=== PATIENT | female | born 1935 | race Caucasian/White ===

== ENCOUNTER 2018-12-04 10:25 | Inpatient (IN) | payer MEDICARE ==
[2018-12-04] VITALS (7 sets, daily range): BP systolic 156–192; BP diastolic 73–107; BMI 17.0
[~2018-12-04] VITALS: Ht 165.1 cm; Wt 46.3 kg
[2018-12-04 11:16] LABS: BASOPHILS 0.2 % (0-2); HEMATOCRIT 25.7 % (36.0-48.0); HEMOGLOBIN 7.7 g/dL (12-16); IMMATURE GRANULOCYTES 0.3 % (0-5); LYMPHOCYTES 22.9 % (15-50); MCH 26.7 pg (26.0-34.0); MCV 89.2 fL (80.0-100.0); MEAN PLATELET VOLUME 9.7 fL (7.4-10.4); MONOCYTES 10.6 % (2-11); PLATELET COUNT 254 10x3/uL (130-400); RBC 2.88 10x6/uL (4.00-5.40); WBC 8.6 10x3/uL (4.8-10.8)
[2018-12-04 11:29] LABS: ALBUMIN 2.7 g/dL (3.4-5.0); BILIRUBIN - TOTAL 0.36 mg/dL (0.2-1.3); CALCIUM 8.7 mg/dL (8.5-10.1); CARBON DIOXIDE 36.5 mmol/L (21.0-32.0); CREATININE - SERUM 0.8 mg/dL (0.6-1.3); POTASSIUM - SERUM 3.5 mmol/L (3.5-5.1); PROTEIN - SERUM 6.8 g/dL (6.4-8.2)
--- NOTE | 2018-12-04 13:27 | NUR ---
SPOKE TO DR. DE LA GARZA ON PHONE ABOUT CONSULT. ORDERED 2 MORE UNITS OF BLOOD TO TRANSFUSE.
--- NOTE | 2018-12-04 14:42 | NUR ---
PATIENT HAD INCONTINENT VOID AND SMALL BM. NURSES CLEANED AND CHANGED. ALSO CHANGED ERIKA FROM LEAKING IV. DC'D IV TO RIGHT FOREARM.
--- NOTE | 2018-12-04 15:57 | NUR ---
NEW 20 GUAGE IV STARTED TO LEFT LEFT FOREARM.
--- NOTE | 2018-12-04 16:16 | NUR ---
OSCAR CATHETER INSERTED AT THIS TIME. DRAINS YELLOW CLEAR URINE
--- NOTE | 2018-12-04 17:08 | MORECARE ---
CASE MANAGEMENT DISCHARGE SUMMARY PATIENT: JONAS LR UNIT: [id number] ADM DATE: 12/04/18 AGE: 82 : 34 SEX: F ROOM/BED: D.2316 AUTHOR: LARRY SUNG PHYSICIAN: REFERRING PHYSICIAN: TATE ESCOTO MD DATE OF SERVICE: 12/04/18 Discharge Plan Patient Name: JONAS LR [facility] [facility] 1935 Planned Disposition: Nursing Facility [facility] Cert Anticipated Discharge Date: Discharge Date: Expected LOS: Initial Reviewer: [email or web address] Initial Review Date: 12/04/2018 Generated: 12/04/18 6:08 pm DCPIA - Discharge Planning Initial Assessment Updated by [email or web address]: Radha Isidro on 12/04/18 5:04 pm * Is the patient Alert and Oriented? Yes * How many steps to enter\exit or inside your home? * PCP Dr. VALENZUELA in [place] * Pharmacy [facility] * Preadmission Environment [facility] * Facility Name [facility] in [place], [place] * ADLs Partial Dependent * Partial ADLs (Assistance needed) Ambulation Bathing Dressing Eating Medication Management Toileting Transfers * List name and contact numbers for known caregivers / representatives who currently or will assist patient after discharge: Tejas Lr - son - [phone] * Verbal permission to speak to the caregivers and representatives has been obtained from the patient. Yes * Community resources currently utilized None * Additional services required to return to the preadmission environment? No * Can the patient safely return to the preadmission environment? Yes * Has this patient been hospitalized within the prior 30 days at any hospital? Yes Patient Name: JONAS LR Page [id number] at 1708 All edits/amendments must be made on the electronic document DICTATION DATE: 12/04/181707 STAFF WEAPONS OFFICER: BENNETT 12/04/181707 RPT#: [id number] DC DATE: STATUS: ADM IN [facility] [address] [place] [address] END OF REPORT
--- NOTE | 2018-12-04 17:20 | MORECARE ---
CASE MANAGEMENT DISCHARGE SUMMARY PATIENT: JONAS ALMANZA UNIT: [id number] ADM DATE: 12/04/18 AGE: 82 : 34 SEX: F ROOM/BED: D.2316 AUTHOR: ANA LILIA,DOC PHYSICIAN: REFERRING PHYSICIAN: TATE ESCOTO MD DATE OF SERVICE: 12/04/18 Discharge Plan Patient Name: JONAS ALMANZA Facility: [facility]:[place] : 1935 Planned Disposition: Nursing Facility [facility] Cert Anticipated Discharge Date: Discharge Date: Expected LOS: Initial Reviewer: [email or web address] Initial Review Date: 12/04/2018 Generated: 12/04/18 6:19 pm Comments DCP- Discharge Planning Updated by [email or web address]: Radha Isidro on 12/04/18 4:[address] Patient Name: JONAS ALMANZA Admission Status: ER Accout number: [id number] Admission Date: 12-04-2018 : 1935 Admission Diagnosis: Attending: TATE ESCOTO Current LOS: 1 Anticipated DC Date: Planned Disposition: Nursing Facility [facility] Cert Primary Insurance: MEDICARE A & B Discharge Planning Comments: CM met with patient and son at bedside after obtaining verbal consent. Son (Tejas) states that patient lives at [facility] in [place], [place]. He states that she plans on returning there upon discharge. Denies any discharge needs at this time. CM will continue to follow and assist as needed with discharge planning / needs. Ends Down Checker: Radha Isidro DCPIA - Discharge Planning Initial Assessment Updated by [email or web address]: Radha Isidro on 12/04/18 5:04 pm * Is the patient Alert and Oriented? Yes * How many steps to enter\exit or inside your home? * PCP Dr. VALENZUELA in [place] * Pharmacy [facility] * Preadmission Environment [employer] * Facility Name [facility] in [place], [place] * ADLs Partial Dependent * Partial ADLs (Assistance needed) Ambulation Bathing Dressing Eating Medication Management Toileting Transfers * List name and contact numbers for known caregivers / representatives who currently or will assist patient after discharge: Tejas Almanza - son - [phone] * Verbal permission to speak to the caregivers and representatives has been obtained from the patient. Yes * Community resources currently utilized None * Additional services required to return to the preadmission environment? No * Can the patient safely return to the preadmission environment? Yes * Has this patient been hospitalized within the prior 30 days at any hospital? Yes Last DP export: 12/04/18 4:08 p Patient Name: JONAS ALMANZA Page [id number] at 1720 All edits/amendments must be made on the electronic document DICTATION DATE: 12/04/181718 AUTOMATIC STACKER: BENNETT 12/04/181718 RPT#: [id number] DC DATE: STATUS: ADM IN [facility] [address] [place] [address] END OF REPORT
--- NOTE | 2018-12-04 17:21 | NUR ---
HOLDING DULCOLAX SUPPOSITORY. PATIENT HAD LARGE BM TODAY WHICH WAS SOFT. HAD SMALL BM 2 HOURS AFTER THAT.
[2018-12-04 17:32] LABS: HEMATOCRIT 29.7 % (36.0-48.0)
--- NOTE | 2018-12-04 18:43 | NUR ---
PATIENT RESTING IN BED AWAKE AND ALERT WITH STABLE VS. WILL CONTINUE TO MONITOR
--- NOTE | 2018-12-04 19:00 | NUR ---
PT IN BED RESTING QUIETLY. ALERT AND ORIENTED X4. RESPIRATIONS EVEN AND UNLABORED. VS STABLE AND AFEBRILE. NO VISUAL CUES OF DISTRESS NOTED. DENIES ANY OTHER NEEDS AT THIS TIME. BED LOW, SIDE RAILS UP X2. CALL LIGHT IN REACH. WILL CONTINUE TO MONITOR.
--- NOTE | 2018-12-04 19:28 | NUR ---
Received report. pt in bed arouses to voice. pt denies needs at this time.
[2018-12-05] VITALS (9 sets, daily range): BP systolic 107–148; BP diastolic 42–68; Ht 165.1 cm; Wt 46.3 kg
[2018-12-05 04:31] LABS: BASOPHILS 0.3 % (0-2); EOSINOPHILS 1.6 % (0-7); IMMATURE GRANULOCYTES 0.5 % (0-5); LYMPHOCYTES 22.8 % (15-50); MCH 27.4 pg (26.0-34.0); MCHC 31.1 g/dL (31.0-37.0); MCV 87.9 fL (80.0-100.0); MONOCYTES 16.6 % (2-11); NEUTROPHILS 58.2 % (40-80); PLATELET COUNT 208 10x3/uL (130-400); RDW 16.7 % (11.5-14.5)
[2018-12-05 04:41] LABS: HEMOGLOBIN 10.9 g/dL (12-16); RBC 3.98 10x6/uL (4.00-5.40)
[2018-12-05 04:51] LABS: ALBUMIN 2.5 g/dL (3.4-5.0); ANION GAP 4.8 mmol/L (8-16); BILIRUBIN - TOTAL 0.55 mg/dL (0.2-1.3); CALCIUM 8.2 mg/dL (8.5-10.1); CARBON DIOXIDE 39.1 mmol/L (21.0-32.0); CREATININE - SERUM 0.8 mg/dL (0.6-1.3); POTASSIUM - SERUM 3.9 mmol/L (3.5-5.1); PROTEIN - SERUM 6.3 g/dL (6.4-8.2)
--- NOTE | 2018-12-05 07:00 | NUR ---
AWAKES EASILY TO VERBAL STIMULI SKIN WARM AND DRY. ABD SOFT NON TENDER FLAT. ORIENTATED TO WHERE SHE IS AND WHY SHE IS HERE. MONITOR SR WITH FREQ PAC. IV RIGHT HAND INFUSING WITH LR AT 125 ML HOUR. OSCAR CATH PATENT DRAINING YELLOW URINE. NO DISTRESS NOTED. DOES COMPLIANT OF BACK PAIN. RETURNS TO SLEEP WHEN NOT STIMULATED. NO SKIN BREAK DOWN NOTED
--- NOTE | 2018-12-05 08:30 | NUR ---
ATE JELLO AND CHICKEN BROTH, DOES NOT LIKE APPLE JUICE. PAIN MEDS GIVEN FOR BACK PAIN. PO MEDS GIVEN TAKEN WITHOUT DIFFICULTY. HEAD OF BED ELEVATED 45 DEGREES.
--- NOTE | 2018-12-05 09:45 | NUR ---
RESTING WELL NO DISTRESS. MONITOR SR WITH FREQ PAC.
--- NOTE | 2018-12-05 10:00 | NUR ---
REPOSITIONED IN BED TOLERATES TRIES TO ASSIST. IV PATENT NO DISTRESS ABD SOFT
--- NOTE | 2018-12-05 12:00 | NUR ---
CLEAR LIQUID DIET SERVED. EATS JELLO, DRINKS CHICKEN BROTH. DOES NOT LIKE THE JUCIE. DRINKS COFFEE
[2018-12-05 12:19] LABS: HEMATOCRIT 34.9 % (36.0-48.0); HEMOGLOBIN 10.8 g/dL (12-16)
--- NOTE | 2018-12-05 13:17 | NUR ---
FAMILY HERE UPDATE ON PATIENT. INFORMED OF TRANSFER TO ROOM 8457
[2018-12-05] MEDS ORDERED: BETOPTIC 0.5% 55 ML EACH EYE (13:30)
[2018-12-05] MEDS ORDERED: LIPITOR10 MG PO (13:30)
[2018-12-05] MEDS ORDERED: ELIQUIS2.5 MG PO (13:31)
[2018-12-05] MEDS ORDERED: CALCITONIN-SAL3.7 ML NASAL (13:31)
[2018-12-05] MEDS ORDERED: FERGON 240 MG240 MG PO (13:32)
[2018-12-05] MEDS ORDERED: LASIX20 MG PO (13:33)
[2018-12-05] MEDS ORDERED: GABAPENTIN100 MG PO (13:33)
[2018-12-05] MEDS ORDERED: IPRAT-ALBUT 0.5-3 ML UPD (13:34)
[2018-12-05] MEDS ORDERED: MIRALAX17 GM PO (13:35)
[2018-12-05] MEDS ORDERED: METOPROLOL TART50 MG PO (13:35)
[2018-12-05] MEDS ORDERED: OMEPRAZOLE20 M1 PO (13:36)
[2018-12-05] MEDS ORDERED: ASCORBIC ACID500 MG PO (13:37)
[2018-12-05] MEDS ORDERED: TIMOPTIC 0.25% O5 M1 EACH EYE (13:37)
[2018-12-05] MEDS ORDERED: DESERYL50 M2 PO (13:37)
[2018-12-05] MEDS ORDERED: ALBUTEROL2.5 MG/3 M INH (13:39)
[2018-12-05] MEDS ORDERED: DULCOLAX10 MG/SUPP RC (13:40)
[2018-12-05] MEDS ORDERED: GUAIFENESI100 MG/5 M PO (13:41)
[2018-12-05] MEDS ORDERED: NORCO 10-325 TA1 TAB PO (13:42)
[2018-12-05] MEDS ORDERED: MUCINEX DM ER1 EAC1 PO (13:44)
[2018-12-05] MEDS ORDERED: MILK OF MAGNESI30 ML PO (13:45)
--- NOTE | 2018-12-05 14:03 | NUR ---
REPORT CALLED TO ANGELO PATIENT TO TRANSFER TO ROOM 2227 PER BED
--- NOTE | 2018-12-05 14:25 | NUR ---
PATIENT TOLERATED TRANSFER WELL. NO DISTRESS
--- NOTE | 2018-12-05 14:40 | NUR ---
RECIEVED PT FROM ICU VIA BED, AWAKE AND ALERT, IV INFUSING FLUIDS IN RIGHT WRIST, LEFT FOREARM SALINE LOCKED, OSCAR CATHETER, TELEMETRY, REQUESTED SOMETHING FOR SHOULDER PAIN, ADMINISTERED PO TYLENOL, APPLIED HEAT PACK, DENIES ANY OTHER NEEDS, BED LOWERED AND LOCKED, CALL LIGHT WITHIN REACH. CPOC
--- NOTE | 2018-12-05 15:30 | NUR ---
O2 DROPPED BELOW 40%, APPLIED O2 AT 4LPM, 02 RETURNED TO 95%. WILL CONTINUE TO MONITOR.
[2018-12-05 16:53] LABS: HEMATOCRIT 33.9 % (36.0-48.0); HEMOGLOBIN 10.7 g/dL (12-16)
--- NOTE | 2018-12-05 18:43 | NUR ---
LAYING IN BED, AWAKE AND ALERT, 02 PRESENT AT 2LPM VIA NC, ADMINISTERED TYLENOL PER ORDER FOR PAIN 07/03 IN BACK, DENIES ANY OTHER CURRENT NEEDS OR DISCOMFORTS, BED LOWERED AND LOCKED, CALL LIGHT WITHIN REACH. CPOC
--- NOTE | 2018-12-05 20:07 | NUR ---
DISCONNECTED PATIENT FROM IV FOR HER TO TAKE A SHOWER. I ALSO BROUGHT THE PATIENT TOWELS PER HER REQUEST. PATIENT DENIES OTHER NEEDS AT THIS TIME. ENCOURAGED THE PATIENT TO CALL IF SHE HAS NEEDS.
--- NOTE | 2018-12-05 20:52 | NUR ---
PATIENT RESTING IN BED AND DENIES NEEDS AT THIS TIME. ADMINISTERED MEDS PER ORDERS. BED IN LOWEST POSITION AND CALL LIGHT WITHIN REACH. ENCOURAGED THE PATIENT TO CALL IF SHE HAS NEEDS.
[2018-12-05 23:07] LABS: HEMATOCRIT 34.2 % (36.0-48.0); HEMOGLOBIN 10.5 g/dL (12-16)
[2018-12-06] VITALS: BP 128/55
[2018-12-06 04:00] VITALS: BP 142/57
--- NOTE | 2018-12-06 05:26 | NUR ---
FRENCH EDGE OPERATOR'S AT BEDSIDE BATHING PATIENT. NO S/S OF DISTRESS. WILL CONTINUE TO MONITOR.
[2018-12-06 07:09] LABS: BASOPHILS 0.1 % (0-2); EOSINOPHILS 1.9 % (0-7); HEMATOCRIT 35.8 % (36.0-48.0); HEMOGLOBIN 10.8 g/dL (12-16); IMMATURE GRANULOCYTES 0.4 % (0-5); LYMPHOCYTES 21.1 % (15-50); MCH 27.6 pg (26.0-34.0); MCHC 30.2 g/dL (31.0-37.0); MEAN PLATELET VOLUME 10.1 fL (7.4-10.4); MONOCYTES 13.9 % (2-11); NEUTROPHILS 62.6 % (40-80); PLATELET COUNT 210 10x3/uL (130-400); RBC 3.91 10x6/uL (4.00-5.40); RDW 16.9 % (11.5-14.5); WBC 7.5 10x3/uL (4.8-10.8)
[2018-12-06 07:21] LABS: MCV 91.6 fL (80.0-100.0)
--- NOTE | 2018-12-06 07:25 | NUR ---
PT RESTING IN BED EYES OPEN. C/O PAIN. GAVE MORPHINE FOR PAIN. NO S/S OF ACUTE DISTRESS NOTED. PT ALERT AND ORIENTED. TELEMETRY SR 63. CELESTINA PRESENT. PT ON 3L O2, NC. IV TO RIGHT WRIST, SITE PATENT WITHOUT REDNESS OR SWELLING. LR INFUSING @ 125ML/HR. PT DENIES ANYTHING FURTHER AT THIS TIME. CALL LIGHT IN REACH. WILL CONTINUE TO MONITOR.
[2018-12-06 07:26] LABS: ALBUMIN 2.4 g/dL (3.4-5.0); BILIRUBIN - TOTAL 0.27 mg/dL (0.2-1.3); CALCIUM 8.3 mg/dL (8.5-10.1); CARBON DIOXIDE 36.5 mmol/L (21.0-32.0); CREATININE - SERUM 0.8 mg/dL (0.6-1.3); POTASSIUM - SERUM 3.5 mmol/L (3.5-5.1); PROTEIN - SERUM 6.1 g/dL (6.4-8.2)
[2018-12-06 09:00] VITALS: BP 168/70
[2018-12-06 12:00] VITALS: BP 126/61
--- NOTE | 2018-12-06 13:05 | NUR ---
PT RESTING IN BED, EYES OPEN. C/O PAIN. GAVE MORPHINE FOR PAIN. NO S/S OF ACUTE DISTRESS NOTED. PT DENIES ANYTHING FURTHER. CALL LIGHT IN REACH. WILL CONTINUE TO MONITOR.
--- NOTE | 2018-12-06 18:12 | NUR ---
PT RESTING IN BED, EYES OPEN. BROTHER AT BEDSIDE. NO C/O PAIN. NO S/S OF DISTRESS NOTED. PT DENIES ANYTHING FURTHER AT THIS TIME. CALL LIGHT IN REACH. WILL CONTINUE TO MONITOR.
--- NOTE | 2018-12-06 19:15 | NUR ---
RECEIVED CARE FROM DAY NURSE. IN HIGH FOWLERS POSITION. REPORTS NO NEEDS AT THIS TIME. OSCAR TO GRAVITY. IV TO RIGHT FA PATENT AND INFUSING LR PER ORDER. IV SL TO LEFT AC. CALL LIGHT AT SIDE.
[2018-12-06 20:47] VITALS: BP 115/48
--- NOTE | 2018-12-06 21:00 | NUR ---
HAD LARGE LIQUID BM. DARK BROWN IN COLOR.
[2018-12-07 04:00] VITALS: BP 128/78
--- NOTE | 2018-12-07 04:02 | NUR ---
PT SLEEPING. BREATHING EVEN AND UNLABORED. WILL CONTINUE POC.
[2018-12-07 05:44] LABS: BASOPHILS 0.2 % (0-2); EOSINOPHILS 2.1 % (0-7); HEMATOCRIT 35.2 % (36.0-48.0); HEMOGLOBIN 10.3 g/dL (12-16); IMMATURE GRANULOCYTES 0.3 % (0-5); LYMPHOCYTES 20.1 % (15-50); MCH 27.1 pg (26.0-34.0); MCHC 29.3 g/dL (31.0-37.0); MCV 92.6 fL (80.0-100.0); MEAN PLATELET VOLUME 9.9 fL (7.4-10.4); MONOCYTES 12.7 % (2-11); NEUTROPHILS 64.6 % (40-80); PLATELET COUNT 212 10x3/uL (130-400); RDW 16.4 % (11.5-14.5); WBC 6.6 10x3/uL (4.8-10.8)
[2018-12-07 05:47] LABS: ALBUMIN 2.3 g/dL (3.4-5.0); ANION GAP 5.8 mmol/L (8-16); BILIRUBIN - TOTAL 0.28 mg/dL (0.2-1.3); CARBON DIOXIDE 35.6 mmol/L (21.0-32.0); CREATININE - SERUM 0.9 mg/dL (0.6-1.3); POTASSIUM - SERUM 3.4 mmol/L (3.5-5.1); PROTEIN - SERUM 5.7 g/dL (6.4-8.2)
[2018-12-07 09:14] VITALS: BP 103/73
--- NOTE | 2018-12-07 10:23 | NUR ---
PATIENT IN BED AT 0830, SKIN W/D TO TOUCH, COLOR PINK, RESP. REGULAR AND EVEN AT 18. ABDOMEN SOFT WITH BS + IN ALL 4 QUADS. DENIES ANY C/O PAIN OR DISCOMFORT. C/L WITHIN REACH AND SR'S UP X'S 2 AND BED IN LOWEST POSITION.
--- NOTE | 2018-12-07 11:18 | MORECARE ---
CASE MANAGEMENT DISCHARGE SUMMARY PATIENT: JONAS HOLGUIN UNIT: [id number] ADM DATE: 12/04/18 AGE: 83 : 34 SEX: F ROOM/BED: D.2227 AUTHOR: ANA LILIA,DOC PHYSICIAN: REFERRING PHYSICIAN: TATE ESCOTO MD DATE OF SERVICE: 12/07/18 Discharge Plan Patient Name: JONAS HOLGUIN Facility: [facility]:[place] : 1935 Planned Disposition: Nursing Facility [facility] Cert Anticipated Discharge Date: Discharge Date: Expected LOS: Initial Reviewer: [email or web address] Initial Review Date: 12/04/2018 Generated: 12/07/18 12:17 pm Comments DCP- Discharge Planning Updated by [email or web address]: Radha Isidro on 12/04/18 4:[address] Patient Name: JONAS LR Admission Status: ER Accout number: [id number] Admission Date: 12-04-2018 : 1935 Admission Diagnosis: Attending: TATE ESCOTO Current LOS: 1 Anticipated DC Date: Planned Disposition: Nursing Facility [facility] Cert Primary Insurance: MEDICARE A & B Discharge Planning Comments: CM met with patient and son at bedside after obtaining verbal consent. Son (Tejas) states that patient lives at [facility] in [place], [place]. He states that she plans on returning there upon discharge. Denies any discharge needs at this time. CM will continue to follow and assist as needed with discharge planning / needs. Division Manager: Radha Isidro DCPIA - Discharge Planning Initial Assessment Updated by [email or web address]: Radha Isidro on 12/04/18 5:04 pm * Is the patient Alert and Oriented? Yes * How many steps to enter\exit or inside your home? * PCP Dr. VALENZUELA in [place] * Pharmacy [facility] * Preadmission Environment [employer] [facility] * Facility Name [facility] in [place], [place] * ADLs Partial Dependent * Partial ADLs (Assistance needed) Ambulation Bathing Dressing Eating Medication Management Toileting Transfers * List name and contact numbers for known caregivers / representatives who currently or will assist patient after discharge: Tejas Lr - son - [phone] * Verbal permission to speak to the caregivers and representatives has been obtained from the patient. Yes * Community resources currently utilized None * Additional services required to return to the preadmission environment? No * Can the patient safely return to the preadmission environment? Yes * Has this patient been hospitalized within the prior 30 days at any hospital? Yes External Providers External Provider: [facility] Next Contact Date: Service Request Date: Service Type: Resolution: Reviewer: Comments: Last DP export: 12/04/18 4:20 p Patient Name: JONAS HOLGUIN Page [id number] at 1118 All edits/amendments must be made on the electronic document DICTATION DATE: 12/07/181116 RN SURGICAL: BENNETT 12/07/181116 RPT#: [id number] DC DATE: STATUS: ADM IN [facility] [address] [place] [address] END OF REPORT
--- NOTE | 2018-12-07 11:25 | MORECARE ---
CASE MANAGEMENT DISCHARGE SUMMARY PATIENT: JONAS HOLGUIN UNIT: [id number] ADM DATE: 12/04/18 AGE: 83 : 34 SEX: F ROOM/BED: D.2227 AUTHOR: LARRY SUNG PHYSICIAN: REFERRING PHYSICIAN: TATE ESCOTO MD DATE OF SERVICE: 12/07/18 Discharge Plan Patient Name: JONAS HOLGUIN Facility: [facility]:[place] : 1935 Planned Disposition: Nursing Facility [facility] Cert Anticipated Discharge Date: Discharge Date: Expected LOS: Initial Reviewer: [email or web address] Initial Review Date: 12/04/2018 Generated: 12/07/18 12:24 pm Comments DCP- Discharge Planning Updated by [email or web address]: Rema Suárez on 12/07/18 10:[address] Spoke with [facility] at [facility] in [place]. She states patient is in a moth exterminator bed at their facility on Hospice care. States they stopped hospice for hospitalization, but will restart after admission to facility. States they can accept her today if early enough and she states patient is unable to sit for that long to come via van and will need ambulance transfer. I spoke with Daniela with Dr. Masterson and informed her. Patient is asleep and not awakened. CM will continue to follow and assist with discharge planning/needs. Updated clinical faxed to [place]. [facility]: DCP- Discharge Planning Updated by [email or web address]: Radha Isidro on 12/04/18 4:[address] Patient Name: JONAS ALMANZA Admission Status: ER Accout number: [id number] Admission Date: 12-04-2018 : 1935 Admission Diagnosis: Attending: TATE ESCOTO Current LOS: 1 Anticipated DC Date: Planned Disposition: Nursing Facility [facility] Cert Primary Insurance: MEDICARE A & B Discharge Planning Comments: CM met with patient and son at bedside after obtaining verbal consent. Son (Tejas) states that patient lives at [facility] in [place], [place]. He states that she plans on returning there upon discharge. Denies any discharge needs at this time. CM will continue to follow and assist as needed with discharge planning / needs. Administrative Services Coordinator: Radha Isidro DCPIA - Discharge Planning Initial Assessment Updated by [email or web address]: Radha Isidro on 12/04/18 5:04 pm * Is the patient Alert and Oriented? Yes * How many steps to enter\exit or inside your home? * PCP Dr. VALENZUELA in [place] * Pharmacy [facility] * Preadmission Environment [facility] * Facility Name [facility] in [place], [place] * ADLs Partial Dependent * Partial ADLs (Assistance needed) Ambulation Bathing Dressing Eating Medication Management Toileting Transfers * List name and contact numbers for known caregivers / representatives who currently or will assist patient after discharge: Tejas tomas - [phone] * Verbal permission to speak to the caregivers and representatives has been obtained from the patient. Yes * Community resources currently utilized None * Additional services required to return to the preadmission environment? No * Can the patient safely return to the preadmission environment? Yes * Has this patient been hospitalized within the prior 30 days at any hospital? Yes Last DP export: 12/07/18 10:18 a Patient Name: JONAS HOLGUIN Page 32431 at 1125 All edits/amendments must be made on the electronic document DICTATION DATE: 12/07/181123 KNIT TUBING DYER: BENNETT 12/07/181123 RPT#: [id number] DC DATE: STATUS: ADM IN [facility] [address] [place] [address] END OF REPORT
[2018-12-07] MEDS ORDERED: LEVAQUIN750 MG PO (11:53)
[2018-12-07] MEDS ORDERED: FLAGYL500 MG PO (11:53)
--- NOTE | 2018-12-07 12:38 | MORECARE ---
CASE MANAGEMENT DISCHARGE SUMMARY PATIENT: JONAS HOLGUIN UNIT: [id number] ADM DATE: 12/04/18 AGE: 83 : 34 SEX: F ROOM/BED: D.2227 AUTHOR: ANA LILIA,DOC PHYSICIAN: REFERRING PHYSICIAN: TATE ESCOTO MD DATE OF SERVICE: 12/07/18 Discharge Plan Patient Name: JONAS HOLGUIN Facility: [facility]:[place] : 1935 Planned Disposition: Nursing Facility [facility] Cert Anticipated Discharge Date: Discharge Date: Expected LOS: Initial Reviewer: [email or web address] Initial Review Date: 12/04/2018 Generated: 12/07/18 1:38 pm Comments DCP- Discharge Planning Updated by [email or web address]: Rema Suárez on 12/07/18 11:[address] Spoke with Nayla at [facility] and she will be returning to a lng term bed today via ambulance (Medicaid). Spoke with her son, Tejas, and informed of discharge, he is in agreement to discharge. She will have to go via ambulance, she is unable to sit up long and has been bedridden and on Hospice at the alf. CM will continue to follow and assist with discharge planning/needs. DCP- Discharge Planning Updated by [email or web address]: Rema Suárez on 12/07/18 10:[address] Spoke with [facility] at [facility] and rehab in [place]. She states patient is in a terminal press operator bed at their facility on Hospice care. States they stopped hospice for hospitalization, but will restart after admission to facility. States they can accept her today if early enough and she states patient is unable to sit for that long to come via van and will need ambulance transfer. I spoke with Daniela with Dr. Masterson and informed her. Patient is asleep and not awakened. CM will continue to follow and assist with discharge planning/needs. Updated clinical faxed to [place]. [facility]: DCP- Discharge Planning Updated by [email or web address]: Radha Isidro on 12/04/18 4:[address] Patient Name: JONAS LR Admission Status: ER Accout number: [id number] Admission Date: 12-04-2018 : 1935 Admission Diagnosis: Attending: TATE ESCOTO Current LOS: 1 Anticipated DC Date: Planned Disposition: Nursing Facility [facility] Primary Insurance: MEDICARE A & B Discharge Planning Comments: CM met with patient and son at bedside after obtaining verbal consent. Son (Tejas) states that patient lives at [facility] in [place], [place]. He states that she plans on returning there upon discharge. Denies any discharge needs at this time. CM will continue to follow and assist as needed with discharge planning / needs. Service Writer Advisor: Radha Isidro DCPIA - Discharge Planning Initial Assessment Updated by [email or web address]: Radha Isidro on 12/04/18 5:04 pm * Is the patient Alert and Oriented? Yes * How many steps to enter\exit or inside your home? * PCP Dr. VALENZUELA in [place] * Pharmacy [facility] * Preadmission Environment [facility] * Facility Name [facility] in [place], [place] * ADLs Partial Dependent * Partial ADLs (Assistance needed) Ambulation Bathing Dressing Eating Medication Management Toileting Transfers * List name and contact numbers for known caregivers / representatives who currently or will assist patient after discharge: Tejas Lr - son - [phone] * Verbal permission to speak to the caregivers and representatives has been obtained from the patient. Yes * Community resources currently utilized None * Additional services required to return to the preadmission environment? No * Can the patient safely return to the preadmission environment? Yes * Has this patient been hospitalized within the prior 30 days at any hospital? Yes Coverage Notice Reviewer: [id number] Annabella Suárez Notice Issued Date-Time: 12/07/2018 12:35 Notice Type: IM Discharge Notice Notice Delivered To: Patient Relationship to Patient: Self Hand Singer Name: Delivery Method: HAND - Hand Delivered Hollie Days: Prior Verbal Notification: Recipient Understood Notice: Yes Recipient Signature: Yes Med Rec Note Co-signed by Attending: Coverage Notice Comment: IMM explained, signed, copy given, original placed in Mr Last DP export: 12/07/18 10:24 a Patient Name: JONAS HOLGUIN Page 50340 at 1238 All edits/amendments must be made on the electronic document DICTATION DATE: 12/07/18 1237 COUNTER TOP ASSEMBLER: BENNETT 12/07/18 1237 RPT#: [id number] DC DATE: STATUS: ADM IN [facility] [address] [place] [address] END OF REPORT
--- NOTE | 2018-12-07 13:50 | NUR ---
PPATIENT'S IV'S D/C'D PER ORDERS AND AMBULANCE HERE TO TRANSPORT PT TO [facility]. DISCHARGE PAPERS SIGNED AND REPORT CALLED TO [facility] WITH DONN OSCAR D/C'S [address] URINE IN [place].
--- NOTE | 2018-12-08 08:13 | MORECARE ---
CASE MANAGEMENT DISCHARGE SUMMARY PATIENT: JONAS HOLGUIN UNIT: [id number] ADM DATE: 12/04/18 AGE: 83 : 33 SEX: F ROOM/BED: D.2227 AUTHOR: ANA LILIA,DOC PHYSICIAN: REFERRING PHYSICIAN: TATE ESCOTO MD DATE OF SERVICE: 12/08/18 Discharge Plan Patient Name: JONAS HOLGUIN Facility: [facility]:[place] : 1935 Planned Disposition: Nursing Facility [facility] Cert Anticipated Discharge Date: Discharge Date: 12/07/2018 Expected LOS: 0 Initial Reviewer: [email or web address] Initial Review Date: 12/04/2018 Generated: 12/08/18 9:13 am Comments DCP- Discharge Planning Updated by [email or web address]: Rema Suárez on 12/07/18 11:[address] Spoke with Nayla at [facility] and she will be returning to a lng term bed today via ambulance (Medicaid). Spoke with her son, Tejas, and informed of discharge, he is in agreement to discharge. She will have to go via ambulance, she is unable to sit up long and has been bedridden and on Hospice at the alf. CM will continue to follow and assist with discharge planning/needs. DCP- Discharge Planning Updated by [email or web address]: Rema Suárez on 12/07/18 10:[address] Spoke with [facility] in [place]. She states patient is in a longwall foreman bed at their facility on Hospice care. States they stopped hospice for hospitalization, but will restart after admission to facility. States they can accept her today if early enough and she states patient is unable to sit for that long to come via van and will need ambulance transfer. I spoke with Daniela with Dr. Masterson and informed her. Patient is asleep and not awakened. CM will continue to follow and assist with discharge planning/needs. Updated clinical faxed to [place]: DCP- Discharge Planning Updated by [email or web address]: Radha Isidro on 12/04/18 4:[address] Patient Name: JONAS LR Admission Status: ER Accout number: [id number] Admission Date: 12-04-2018 : 1935 Admission Diagnosis: Attending: TATE ESCOTO Current LOS: 1 Anticipated DC Date: Planned Disposition: Nursing Facility [facility] Primary Insurance: MEDICARE A & B Discharge Planning Comments: CM met with patient and son at bedside after obtaining verbal consent. Son (Tejas) states that patient lives at [facility] in [place], [place]. He states that she plans on returning there upon discharge. Denies any discharge needs at this time. CM will continue to follow and assist as needed with discharge planning / needs. Emergency Dept Tech: Radha Isidro DCPIA - Discharge Planning Initial Assessment Updated by [email or web address]: Radha Isidro on 12/04/18 5:04 pm * Is the patient Alert and Oriented? Yes * How many steps to enter\exit or inside your home? * PCP Dr. VALENZUELA in [place] * Pharmacy [facility] * Preadmission Environment [employer] * Facility Name [facility] in [place], [place] * ADLs Partial Dependent * Partial ADLs (Assistance needed) Ambulation Bathing Dressing Eating Medication Management Toileting Transfers * List name and contact numbers for known caregivers / representatives who currently or will assist patient after discharge: Tejas Lr - son - [phone] * Verbal permission to speak to the caregivers and representatives has been obtained from the patient. Yes * Community resources currently utilized None * Additional services required to return to the preadmission environment? No * Can the patient safely return to the preadmission environment? Yes * Has this patient been hospitalized within the prior 30 days at any hospital? Yes Coverage Notice Reviewer: [email or web address] Annabella Suárez Notice Issued Date-Time: 12/07/2018 12:35 Notice Type: IM Discharge Notice Notice Delivered To: Patient Relationship to Patient: Self Deputy Chief Magistrate Name: Delivery Method: HAND - Hand Delivered Hollie Days: Prior Verbal Notification: Recipient Understood Notice: Yes Recipient Signature: Yes Med Rec Note Co-signed by Attending: Coverage Notice Comment: IMM explained, signed, copy given, original placed in Mr Last DP export: 12/07/18 11:38 a Patient Name: JONAS HOLGUIN Page [id number] at 0813 All edits/amendments must be made on the electronic document DICTATION DATE: 12/08/18811 CREW CLERK: BENNETT 12/08/18811 RPT#: [id number] DC DATE:12/07/18 STATUS: DIS IN [facility] [address] [facility] [place] [address] END OF REPORT
== END 2018-12-07 13:54 | disposition home health service (06) | DRG 378 ==
LOC: D.ER 10:25 → D.EDHOLD 12:05 → D.ICU 12:05 → D.MS 12-05 14:15
PROVIDERS: Emergency Medicine; Family Medicine; ADMIT Family Medicine
DX: K57.33 Diverticulitis of large intestine without perforation or abscess with bleeding (principal); D62 Acute posthemorrhagic anemia; J44.9 Chronic obstructive pulmonary disease, unspecified; K56.41 Fecal impaction; I71.4 Abdominal aortic aneurysm, without rupture; R00.0 Tachycardia, unspecified; Z87.891 Personal history of nicotine dependence